=== PATIENT | female | born 1935 | race Caucasian/White ===

== ENCOUNTER 2020-07-13 13:55 | Emergency (ER) | payer OTHER, BC ==
[2020-07-13 14:16] VITALS: TEMP 97.9; BMI 29.1
[2020-07-13] MEDS ORDERED: MECLIZINE HCL 25 MG TABLET (FP) PO ONE (15:14)
[2020-07-13] MEDS ORDERED: MECLIZINE HCL 25 MG TABLET (FP) ONE (15:14)
[2020-07-13 15:15] LABS: BASO % 1.2 % (0-2.0); EOS % 4.2 % (0-4.5); HEMATOCRIT 38.8 % (32.4-45.2); HEMOGLOBIN 12.7 GM/dL (10.7-15.3); LYMPH % 42.4 % (8-40); MCH 29.1 pg (25.7-33.7); MCHC 32.8 g/dl (32.0-36.0); MEAN CELL VOLUME 88.6 fl (80-96); MEAN PLT VOLUME 8.9 fl (7.5-11.1); MONO % 10.1 % (3.8-10.2); NEUT % 42.1 % (42.8-82.8); PLATELET COUNT 228 K/MM3 (134-434); RBC 4.37 M/mm3 (3.60-5.2); RDW 13.5 % (11.6-15.6); WHITE BLOOD COUNT 6.3 K/mm3 (4.0-10.0)
[2020-07-13 15:25] LABS: INR 1.01 (0.83-1.09); PROTHROMBIN TIME (PATIENT) 11.9 SEC (9.7-13.0)
[2020-07-13 16:02] LABS: ALBUMIN 3.7 g/dl (3.4-5.0); ALK PHOS 36 U/L (45-117); ANION GAP 6 MMOL/L (8-16); BILIRUBIN,TOTAL 0.4 mg/dL (0.2-1); BLOOD UREA NITROGEN 24.6 mg/dL (7-18); CALCIUM 8.9 mg/dL (8.5-10.1); CHLORIDE 108 mmol/L (98-107); CO2 26 mmol/L (21-32); CREATININE 0.9 mg/dL (0.55-1.3); GLUCOSE,RANDOM 96 mg/dL (74-106); POTASSIUM 4.2 mmol/L (3.5-5.1); SGOT/AST 33 U/L (15-37); SGPT/ALT 44 U/L (13-61); SODIUM 141 mmol/L (136-145)
--- NOTE | 2020-07-13 16:12 | PDOC ---
Attending Attestation - Resident Resident Name: Flor Torres - ED Attending Attestation I have performed the following: I have examined & evaluated the patient, The case was reviewed & discussed with the resident, I agree w/resident's findings & plan - HPI HPI: 07/13/20 16:09 High functioning 84-year-old female with history of osteoarthritis and joint replacements presents for evaluation of 1 month of positional vertigo. Patient reports transient vertigo with positional changes of her head that have been ongoing for the last month, she has been back and forth from [place] so she has not been able to establish definitive care, but she did see her PCP in [place] who referred her to a neurologist, with whom she has been unable to follow-up. Patient describes the symptoms as about 30 seconds to 1 minute of room spinning when she either sits/stands or turns her head in bed. There is no associated headache or vomiting, but she does sometimes get nauseous. The symptoms resolved once she holds her head still, she denies any hearing loss or ringing, denies any fevers or chills or neck stiffness, denies any difficulty ambulating or focal weakness or difficulty speaking. - Physicial Exam PE: 07/13/20 16:10 Vital signs stable Very pleasant and well-appearing elderly woman seated comfortably in stretcher, conversant and joking with staff, no acute distress Pupils are equal round reactive to light, extraocular movements are intact without nystagmus, TMs are clear Neck is supple No audible carotid bruit Heart is regular to auscultation, lungs are clear Neuro wnl - Medical Decision Making 07/13/20 16:11 84-year-old female with positional vertigo for 1 month, hemodynamically stable here with benign neurological exam. Presentation seems most consistent with peripheral vertigo, no red flags on history or physical exam particularly given the timeframe of symptoms. Check CT head to screen for this elderly patient with vertigo, rule out space- occupying lesion or old infarct Labs sent Trial of meclizine If above is within normal limits, patient improved now, can be discharged with PCP and neurology follow-up and strict return criteria Heart Score/ECG Review #1 ECG reviewed & interpreted by me at: 14:30 General ECG Interpretation: Sinus Rhythm (APC noted), Normal Rate (61), Normal Intervals (qtc 450), No acute ischemic changes Discharge - Discharge Information Problems reviewed: Yes Clinical Impression/Diagnosis: Positional vertigo Condition: Fair - Follow up/Referral - Patient Discharge Instructions - Post Discharge Activity
--- NOTE | 2020-07-13 16:46 | PDOC ---
History of Present Illness - General Chief Complaint: Lightheaded Stated Complaint: LIGHTHEADED Time Seen by Provider: 07/13/20 14:44 - History of Present Illness Initial Comments: HPI: 84yo F with PMH of osteoporosis and osteoarthritis presenting with dizziness x 1 month. Patient reports she has had episodes of dizziness lasting about five minutes each time, occurring especially at night when she is laying down. The episodes self-resolve. Presents today because the episodes seem to occur more frequently and patient is requesting a primary care referral to a local provider. Has mentioned this to her primary care physician and was considering a referral to ENT. Patient has never been on medication for this previously. Has never been evaluated by a neurologist. Denies focal neurologic deficit, slurred speech, or changes in ambulation. Patient walks with a cane at baseline. Denies fall or syncope. No fevers, chills, chest pain, or shortness of breath. PCP: Dr. Connell (spelling?) ROS: Constitutional: no fever, no chills HEENT: no throat pain, no dysphagia Cardiovascular: no chest pain, no palpitations Respiratory: no cough, no shortness of breath Gastrointestinal: no abdominal pain, no nausea Genitourinary: no dysuria, no hematuria Musculoskeletal: no myalgia, no arthralgia Skin: no rash, no itching Neurologic: no headache, no weakness Psych: no agitation, no anxiety PE: General: Awake, alert, and fully oriented, in no acute distress Head: No signs of trauma Eyes: EOMI, sclera anicteric ENT: Moist mucus membranes Neck: Normal ROM, supple Lungs: Lungs clear, Normal breath sounds Cardio: Regular rhythm, S1 and S2 present Abdomen: Soft, nontender. No guarding, no rebound, no masses Extremities: Normal range of motion, Distal pulses present Skin: Warm, Dry, normal turgor Neurologic: Cranial nerves II through XII intact. Normal speech, sensation, strength, coordination, and gait. ED Course/MDM: DDX including but not limited to peripheral vertigo, brain mass/bleed/stroke, UTI, anemia, metabolic derangement Likely peripheral vertigo; will trial meclizine CBC WBC 6.3 K/mm3 (4.0-10.0) 07/13/20 14:50 RBC 4.37 M/mm3 (3.60-5.2) 07/13/20 14:50 Hgb 12.7 GM/dL (10.7-15.3) 07/13/20 14:50 Hct 38.8 % (32.4-45.2) 07/13/20 14:50 MCV 88.6 fl (80-96) 07/13/20 14:50 MCH 29.1 pg (25.7-33.7) 07/13/20 14:50 MCHC 32.8 g/dl (32.0-36.0) 07/13/20 14:50 RDW 13.5 % (11.6-15.6) 07/13/20 14:50 Plt Count 228 K/MM3 (134-434) 07/13/20 14:50 MPV 8.9 fl (7.5-11.1) 07/13/20 14:50 Absolute Neuts (auto) 2.6 K/mm3 (1.5-8.0) 07/13/20 14:50 Neutrophils % 42.1 % (42.8-82.8) L 07/13/20 14:50 Lymphocytes % 42.4 % (8-40) H 07/13/20 14:50 Monocytes % 10.1 % (3.8-10.2) 07/13/20 14:50 Eosinophils % 4.2 % (0-4.5) 07/13/20 14:50 Basophils % 1.2 % (0-2.0) 07/13/20 14:50 Nucleated RBC % 0 % (0-0) 07/13/20 14:50 No leukocytosis or anemia CMP Sodium 141 mmol/L (136-145) 07/13/20 14:50 Potassium 4.2 mmol/L (3.5-5.1) 07/13/20 14:50 Chloride 108 mmol/L (98-107) H 07/13/20 14:50 Carbon Dioxide 26 mmol/L (21-32) 07/13/20 14:50 Anion Gap 6 MMOL/L (8-16) L 07/13/20 14:50 BUN 24.6 mg/dL (7-18) H 07/13/20 14:50 Creatinine 0.9 mg/dL (0.55-1.3) 07/13/20 14:50 Est GFR (CKD-EPI)AfAm 68.05 07/13/20 14:50 Est GFR (CKD-EPI)NonAf 58.71 07/13/20 14:50 Random Glucose 96 mg/dL (74-106) 07/13/20 14:50 Calcium 8.9 mg/dL (8.5-10.1) 07/13/20 14:50 Total Bilirubin 0.4 mg/dL (0.2-1) 07/13/20 14:50 AST 33 U/L (15-37) 07/13/20 14:50 ALT 44 U/L (13-61) 07/13/20 14:50 Alkaline Phosphatase 36 U/L (45-117) L 07/13/20 14:50 Creatine Kinase 67 U/L (26-192) 07/13/20 14:50 Troponin I < 0.02 ng/ml (0.00-0.05) 07/13/20 14:50 Total Protein 7.0 g/dl (6.4-8.2) 07/13/20 14:50 Albumin 3.7 g/dl (3.4-5.0) 07/13/20 14:50 Electrolytes unremarkable Cr normal Tpn undetectable Pending CT Head UA 07/13/20 16:41 Laboratory Tests 07/13/20 16:31 Urine Color Yellow Urine Appearance Clear Urine pH 5.0 Ur Specific Gibbs 1.010 Urine Protein Negative Urine Glucose (UA) Negative Urine Ketones Negative Urine Blood Negative Urine Nitrite Negative Urine Bilirubin Negative Urine Urobilinogen 0.2 Ur Leukocyte Esterase Negative UA without infection CT head unremarkable, per radiology: "TECHNIQUE: Sequential axial images were obtained from the base of the skull to the vertex. There is no evidence of acute intracranial hemorrhage, mass lesions or infarctions. There is a moderate degree of diffuse cerebral atrophy with sulcal widening and ventricular dilatation. Hypodense changes are noted throughout the periventricular white matter consistent with chronic, small vessel ischemia. The visualized paranasal sinuses and mastoid air cells are clear. The calvarium is intact. IMPRESSION: No evidence of acute intracranial pathology." This is likely peripheral vertigo given then transient short-lived nature of dizziness exacerbated by positional movement; I have low suspicion for a central process Patient without dizziness now Prescription for meclizine sent to [facility] Via meds to beds program, patient provided prescription while in the ER Given referral to primary care phsyician Neurology referral as well Return precautions Stable for discharge 07/13/20 19:45 Past History - Medical History Allergies/Adverse Reactions: Allergies Allergy/AdvReac Type Severity Reaction Status Date / Time codeine AdvReac Vomiting Verified 07/13/20 14:16 Home Medications: Ambulatory Orders Aspirin [Aspirin EC] 325 mg PO BID 03/21/15 Atenolol [Tenormin -] 50 mg PO DAILY 03/21/15 Cholecalciferol (Vitamin D3) [Vitamin D3] 2,000 unit PO DAILY 03/21/15 Furosemide [Lasix -] 20 mg PO DAILY 03/21/15 Potassium Chloride 10 meq PO BID 03/21/15 Famotidine [Pepcid AC] 20 mg PO DAILY 07/13/20 Meclizine HCl [Antivert -] 25 mg PO HS PRN #14 tablet 07/13/20 Anemia: No Asthma: No Cancer: No Cardiac Disorders: No CVA: No COPD: No CHF: Yes Dementia: No Diabetes: No GI Disorders: No Disorders: No HTN: Yes Hypercholesterolemia: No Liver Disease: No Seizures: No Thyroid Disease: No - Surgical History Abdominal Surgery: No Appendectomy: Yes Cardiac Surgery: No Cholecystectomy: Yes Lung Surgery: No Neurologic Surgery: No Orthopedic Surgery: No - Reproductive History Is Patient Now?: No - Psycho-Social/Smoking History Smoking History: Never smoked Have you smoked in the past 12 months: No Information on smoking cessation initiated: No - Substance Abuse Hx (Audit-C & DAST Scrn) How often the patient has a drink containing alcohol: Never Score: In Men: 4 or > Positive; In Women: 3 or > Positive: 0 Screen Result (Pos requires Nsg. Audit-10AR): Negative In the last yr the pt used illegal drug/Rx for NonMed reason: No Score: Yes response is considered Positive: 0 Screen Result (Positive result requires Nsg. DAST-10): Negative *Physical Exam - Vital Signs Last Vital Signs Temp Pulse Resp BP Pulse Ox 97.9 F 59 L 18 107/55 L 97 07/13/20 14:14 07/13/20 14:14 07/13/20 14:14 07/13/20 14:14 07/13/20 14:14 ED Treatment Course - LABORATORY CBC & Chemistry Diagram: 07/13/20 14:50 07/13/20 14:50 - ADDITIONAL ORDERS Additional order review: Laboratory Results 07/13/20 07/13/20 14:50 14:50 PT with INR 11.90 INR 1.01 Sodium 141 Potassium 4.2 Chloride 108 H Carbon Dioxide 26 Anion Gap 6 L BUN 24.6 H Creatinine 0.9 Est GFR (CKD-EPI)AfAm 68.05 Est GFR (CKD-EPI)NonAf 58.71 Random Glucose 96 Calcium 8.9 Total Bilirubin 0.4 AST 33 ALT 44 Alkaline Phosphatase 36 L Creatine Kinase 67 Troponin I < 0.02 Total Protein 7.0 Albumin 3.7 07/13/20 14:50 RBC 4.37 MCV 88.6 MCHC 32.8 RDW 13.5 MPV 8.9 Neutrophils % 42.1 L Lymphocytes % 42.4 H Monocytes % 10.1 Eosinophils % 4.2 Basophils % 1.2 - RADIOLOGY Radiology Studies Ordered: Category Date Time Status HEAD CT WITHOUT CONTRAST [CT] Stat CT Scan 07/13/20 15:44 Ordered - Medications Given in the ED: ED Medications Discontinued Medications Generic Name Dose Route Start Last Admin Trade Name Freq PRN Reason Stop Dose Admin Meclizine HCl 25 mg 07/13/20 15:14 07/13/20 15:18 Antivert - PO 07/13/20 15:15 25 mg ONCE ONE Administration Discharge - Discharge Information Problems reviewed: Yes Clinical Impression/Diagnosis: Positional vertigo Condition: Stable Disposition: HOME - Additional Discharge Information Prescriptions: Meclizine HCl [Antivert -] 25 mg PO HS PRN #14 tablet PRN Reason: dizziness - Follow up/Referral Referrals: Dakota Garcia MD [Staff Physician] - [facility] [place] [facility] [Provider Group] - Patient Discharge Instructions Patient Printed Discharge Instructions: Vertigo Additional Instructions: You came into the emergency department for dizziness. Labs and CT imaging did not show acute pathology. Prescription sent to your pharmacy. Take as instructed. We have referred you to a neurologist. Call and make an appointment. Your workup is not complete until you do so. Follow-up with a primary care provider within 72 hours to discuss this ED visit and to further evaluate your symptoms. Your workup is not complete until you do so. You have been referred to the [facility] in case you do not have a primary care doctor. Call and make an appointment at the number provided. RETURN if: you have severe headache, high fever, persistent vomiting, changes in vision, seizures, or any other new or concerning symptoms. If you think you are having an emergency, call for emergency medical services or present to the emergency department right away. - Post Discharge Activity
--- OUTSIDE RECORDS SUMMARY | 2020-07-13 16:48 | XMS ---
:1935 Author Organization [facility] Care Team Providers Name Role Phone Monica Unavailable Unavailable Monica Unavailable Unavailable Monica Unavailable Unavailable Monica Unavailable Unavailable Monica Unavailable Unavailable Monica Unavailable Unavailable Monica Unavailable Unavailable Monica Unavailable Unavailable Monica Unavailable Unavailable Monica Unavailable Unavailable Monica Unavailable Unavailable Monica Unavailable Unavailable Monica Unavailable Unavailable Monica Unavailable Unavailable Monica Unavailable Unavailable Monica Unavailable Unavailable Monica Unavailable Unavailable Re-disclosure Warning The records that you are about to access may contain information from federally- assisted alcohol or drug abuse programs. If such information is present, then the following federally mandated warning applies: This information has been disclosed to you from records protected by federal confidentiality rules (42 CFR part 2). The federal rules prohibit you from making any further disclosure of this information unless further disclosure is expressly permitted by the written consent of the person to whom it pertains or as otherwise permitted by 42 CFR part 2. A general authorization for the release of medical or other information is NOT sufficient for this purpose. The Federal rules restrict any use of the information to criminally investigate or prosecute any alcohol or drug abuse patient.The records that you are about to access may contain highly sensitive health information, the redisclosure of which is protected by Article 27-F of the [facility] Public Health law. If you continue you may haveaccess to information: Regarding HIV / AIDS; Provided by facilities licensed or operated by the [facility] Office of Mental Health; or Provided by the [facility] Office for People With Developmental Disabilities. If such information is present, then the following [facility] mandated warning applies: This information has been disclosed to you from confidential records which are protected by state law. State law prohibits you from making any further disclosure of this information without the specific written consent of the person to whom it pertains, or as otherwise permitted by law. Any unauthorized further disclosure in violation of state law may result in a fine or chcf sentence or both. A general authorization for the release of medical or other information is NOT sufficient authorization for further disclosure. Allergies and Adverse Reactions Type Description Substance Reaction Status Data Source(s ) Drug allergy hylan G-F 20 hylan G-F 20 [facility] Drug allergy codeine codeine [facility] Encounters Encounter Providers Location Date Indications Data Source(s ) Outpatient Attender: Emily 11/03/2019 [facility] 11:24:00 AM Hospital EST Outpatient Attender: Emily 05/02/2019 [facility] 12:56:00 PM Hospital EDT Insurance Providers Payer name Policy type Policy ID Covered Covered constitution party's Policy P brett / Coverage constitution party ID relationship to [place] [employer] type [place] [id number] MEDICARE [id number] BC PPO [id number] SP [id number] SELF PAY SP INSURANCE
[2020-07-13 18:10] LABS: URINE APPEARANCE CLEAR; URINE BILIRUBIN NEGATIVE (NEGATIVE); URINE COLOR YELLOW; URINE GLUCOSE (UA) NEGATIVE (NEGATIVE); URINE KETONE NEGATIVE (NEGATIVE); URINE LEUK ESTERASE NEGATIVE (NEGATIVE); URINE NITRITE NEGATIVE (NEGATIVE); URINE PROTEIN NEGATIVE (NEGATIVE); URINE UROBILINOGEN 0.2 mg/dL (0.2-1.0)
[2020-07-14 02:02] VITALS: BP 122/72; PULSE 65
--- NOTE | 2020-07-14 10:02 | EKG ---
Test Reason : Blood Pressure : / mmHG Vent. Rate : 061 BPM Atrial Rate : 061 BPM P-R Int : 238 ms QRS Dur : 084 ms QT Int : 448 ms P-R-T Axes : 048 035 053 degrees QTc Int : 450 ms SINUS RHYTHM WITH 1ST DEGREE A-V BLOCK WITH PREMATURE SUPRAVENTRICULAR COMPLEXES LOW VOLTAGE QRS BORDERLINE ECG WHEN COMPARED WITH ECG OF 09-JUN-1999 01:41, PREMATURE SUPRAVENTRICULAR COMPLEXES ARE NOW PRESENT MA INTERVAL HAS INCREASED NONSPECIFIC T WAVE ABNORMALITY NOW EVIDENT IN ANTERIOR LEADS Confirmed by Nestor De León ([id number]) on 07/14/2020 10:02:32 AM Referred By: Confirmed By:Nestor De León
== END 2020-07-13 21:11 | disposition home or self-care (01) ==
LOC: JER 13:55
DX: H81.10 Benign paroxysmal vertigo, unspecified ear (principal)
CPT/HCPCS: 36415; 70450-TC; 80053; 81003; 82550; 84484; 85025; 85610; 87086; 93005; 93010; 99285-25

== ENCOUNTER 2020-12-30 10:13 | Emergency (ER) | payer OTHER, BC ==
[2020-12-30 10:27] VITALS: BP 127/51; PULSE 68; TEMP 98; BMI 29.9
== END 2020-12-30 14:52 | disposition home or self-care (01) ==
LOC: JER 10:13
DX: M25.542 Pain in joints of left hand (principal); M25.532 Pain in left wrist
CPT/HCPCS: 73110-TC-LT-FY; 73130-TC-LT-FY; 93005; 93010; 99285-25

== ENCOUNTER 2024-01-20 09:28 | Emergency (ER) | payer OTHER, BC ==
[2024-01-20 09:46] VITALS: RESP 20; TEMP 97.9; BMI 30.2
[2024-01-20] MEDS ORDERED: LABETALOL HCL 5 MG/1 ML (100MG/20 ML VIAL) ONE ×2 (12:04→12:05)
[2024-01-20] MEDS: LABETALOL HCL 5 MG/1 ML (100MG/20 ML VIAL) IVPUSH ONE (12:15)
[2024-01-20 12:21] LABS: BASO % 0.2 % (0-2.0); EOS % 0.4 % (0-4.5); HEMATOCRIT 40.2 % (32.4-45.2); HEMOGLOBIN 13.4 GM/dL (10.7-15.3); LYMPH % 21.7 % (8-40); MCH 29.7 pg (25.7-33.7); MCHC 33.2 g/dl (32.0-36.0); MEAN CELL VOLUME 89.3 fl (80-96); MEAN PLT VOLUME 8.5 fl (7.5-11.1); MONO % 8.8 % (3.8-10.2); NEUT % 68.9 % (42.8-82.8); PLATELET COUNT 218 10^3/uL (134-434); WHITE BLOOD COUNT 7.8 K/mm3 (4.0-10.0)
[2024-01-20 12:23] VITALS: PULSE 89
[2024-01-20 12:24] VITALS: BP 135/60
[2024-01-20] MEDS ORDERED: ACETAMINOPHEN INJECTION 100 ML IVPB ONE (12:25)
[2024-01-20 12:28] LABS: INR 1.13 (0.83-1.09); PROTHROMBIN TIME (PATIENT) 13.1 SEC (9.7-13.0)
[2024-01-20] MEDS: ACETAMINOPHEN 1000 MG/100 ML BAG IVPB ONE (12:34)
[2024-01-20 12:42] LABS: POTASSIUM 4.3 mmol/L (3.5-5.1)
[2024-01-20 12:44] LABS: ALBUMIN 3.6 g/dl (3.4-5.0); BLOOD UREA NITROGEN 28.8 mg/dL (7-18); CALCIUM 9.3 mg/dL (8.5-10.1)
[2024-01-20 12:47] LABS: CREATININE 0.8 mg/dL (0.55-1.3)
[2024-01-20 12:49] LABS: BILIRUBIN,TOTAL 0.8 mg/dL (0.2-1)
== END 2024-01-20 12:55 | disposition short-term general hospital (02) ==
LOC: JER 09:28
PROC: 3E033NZ Introduction of Analgesics, Hypnotics, Sedatives into Peripheral Vein, Percutaneous Approach (ICD-10-PCS; principal; 2024-01-20)
PROC: 3E033GC Introduction of Other Therapeutic Substance into Peripheral Vein, Percutaneous Approach (ICD-10-PCS; 2024-01-20)
DX: S06.360A Traumatic hemorrhage of cerebrum, unspecified, without loss of consciousness, initial encounter (principal); S06.5X0A Traumatic subdural hemorrhage without loss of consciousness, initial encounter; R11.10 Vomiting, unspecified; R42 Dizziness and giddiness; W01.198A Fall on same level from slipping, tripping and stumbling with subsequent striking against other object, initial encounter
CPT/HCPCS: 36415; 70450-TC; 71045-TC-FY; 72125-TC; 72170-TC-FY; 80053; 85025; 85610; 85730; 99291; J0131

== ENCOUNTER 2024-08-22 04:15 | Day surgery (SDC) | payer OTHER, BC ==
[2024-08-20 13:38] VITALS: BMI 26.9
[2024-08-22] MEDS ORDERED: ACETAMINOPHEN 500 MG TABLET (FP) PO PRN (08:39)
[2024-08-22] MEDS ORDERED: MIDAZOLAM HCL 2 MG/2 ML SINGLE DOSE VIAL ONE ×2 (09:23→09:56)
[2024-08-22] MEDS: LIDOCAINE HCL 1% PRESERVATIVE FREE - 30ML VIAL IJ ONE (09:41)
[2024-08-22] MEDS ORDERED: ONDANSETRON 4 MG/2 ML VIAL ONE (09:42)
[2024-08-22] MEDS: IOHEXOL 180 MG/1 ML ML IJ ONE ×2 (09:46)
[2024-08-22] MEDS: DEXAMETHASONE SOD PHOSPHATE 10 MG/1 ML VIAL IM ONE ×2 (10:15)
[2024-08-22 10:41] VITALS: RESP 20; TEMP 97.8
[2024-08-22 11:02] VITALS: BP 130/61; PULSE 75
== END 2024-08-22 10:45 | disposition home or self-care (01) ==
LOC: JASU-SURG 04:15
PROVIDERS: ATTEND Pain Medicine Pain Medicine
PROC: 3E0R3BZ Introduction of Anesthetic Agent into Spinal Canal, Percutaneous Approach (ICD-10-PCS; 2024-08-22)
PROC: 3E0R33Z Introduction of Anti-inflammatory into Spinal Canal, Percutaneous Approach (ICD-10-PCS; principal; 2024-08-22 09:30)
DX: M54.16 Radiculopathy, lumbar region (principal)
CPT/HCPCS: 76000-TC-FY; J1100

== ENCOUNTER 2024-09-25 04:10 | Day surgery (SDC) | payer OTHER, BC ==
[2024-09-17 13:32] VITALS: BMI 26.9
[2024-09-25] MEDS: IOHEXOL 180 MG/1 ML ML IJ ONE
[2024-09-25] MEDS: DEXAMETHASONE SOD PHOSPHATE 10 MG/1 ML VIAL IM ONE
[2024-09-25] MEDS: LIDOCAINE HCL 1% PRESERVATIVE FREE - 30ML VIAL IJ ONE
[2024-09-25] MEDS ORDERED: DEXAMETHASONE SOD PHOSPHATE 10 MG/1 ML VIAL ONE ×2 (07:18→07:19)
[2024-09-25] MEDS ORDERED: ACETAMINOPHEN 500 MG TABLET (FP) PO PRN (09:04)
[2024-09-25 11:47] VITALS: RESP 18; TEMP 97.5
[2024-09-25 16:19] VITALS: BP 138/74; PULSE 57
== END 2024-09-25 16:04 ==
LOC: JASU-SURG 04:10
PROVIDERS: ATTEND Pain Medicine Pain Medicine
PROC: 3E0R3BZ Introduction of Anesthetic Agent into Spinal Canal, Percutaneous Approach (ICD-10-PCS; 2024-09-25)
PROC: 3E0R33Z Introduction of Anti-inflammatory into Spinal Canal, Percutaneous Approach (ICD-10-PCS; principal; 2024-09-25 13:45)
DX: M54.16 Radiculopathy, lumbar region (principal); Z53.8 Procedure and treatment not carried out for other reasons
CPT/HCPCS: 76000-TC-FY; J1100